=== PATIENT | female | born 1940 | race Caucasian/White ===

== ENCOUNTER 2024-12-17 11:00 | Outpatient (CLI) | payer OTHER | END 2024-12-17 11:01 | disposition home or self-care (01) | LOC: PET 11:00 | PROVIDERS: ATTEND Radiology Radiation Oncology | DX: C34.12 Malignant neoplasm of upper lobe, left bronchus or lung (principal); J94.9 Pleural condition, unspecified; J98.4 Other disorders of lung | CPT/HCPCS: 78815; A9552 ==